=== PATIENT | female | born 1990 | race Caucasian/White ===

== ENCOUNTER 2018-07-10 19:52 | Emergency (ER) | payer OTHER, MEDICAID, SELFPAY ==
[2018-07-10 20:06] VITALS: BP 107/74; PULSE 84; RESP 16; TEMP 36.3; O2SAT 99; BMI 25.0
[2018-07-10 20:25] LABS: Bacteria Urine None Seen; RBC Urine None Seen (0-5/HPF)
[2018-07-10 20:39] LABS: Culture Indicated Urine Specimen Cultured; Mucus Urine 2+ (Negative); WBC Urine 5-10/HPF (0-5/HPF)
[2018-07-10] MEDS: SODIUM CHLORIDE 0.9% 1,000 ML 1000 ML IV (21:15)
[2018-07-10] MEDS: ONDANSETRON 4 MG/2 ML INJ IV (21:15)
--- NOTE | 2018-07-10 22:13 | PC.NURSE ---
Pt feeling much better after ns and zofran
[2018-07-10 22:25] LABS: Add Manual Diff / Slide Review NO; Basophils Percent Auto 0.1 % (0-2); Eosinophils Percent Auto 0.1 % (2-4); Hematocrit 47.7 % (36-46); Hemoglobin 16.2 g/dL (12.0-16.0); Lymphocytes Percent Auto 7.1 % (25-40); Mean Corpuscular HGB Conc 33.9 % (30-36); Mean Corpuscular Hemoglobin 31.3 PG (26-34); Mean Corpuscular Volume 92.2 fL (80-100); Monocytes Percent Auto 4.8 % (3-14); Neutrophils Absolute Auto 14000 /uL (3000-5900); Neutrophils Percent Auto 87.9 % (50-75); Platelet Count 223 X10^3/uL (150-400); Red Blood Cell Count 5.17 X10^6/uL (4.0-5.2); Red Cell Distribution Width 12.9 % (11.6-14.8); White Blood Cell Count 15.9 X10^3/uL (4.5-11.0)
[2018-07-10 22:31] LABS: Alanine Aminotransferase 22 IU/L (9-52); Albumin 5.1 g/dL (3.5-5.0); Albumin Globulin Ratio 1.4 (1.0-2.8); Alkaline Phosphatase 70 U/L (38-126); Aspartate Aminotransferase 28 IU/L (14-36); Bilirubin Total 0.9 mg/dL (0.2-1.3); Blood Urea Nitrogen 14 mg/dL (7-17); Calcium 10.1 mg/dL (8.4-10.2); Carbon Dioxide 23 mmol/L (22-32); Chloride 103 mmol/L (98-107); Estimated Glomerular Filt Rate > 60.0 mL/min (>60); Globulin 3.6 g/dL (1.7-4.1); Glucose 110 mg/dL (70-100); HEMOLYSIS < 15 (0-50); Lipase 116 U/L (23-300); Potassium 4.1 mmol/L (3.4-5.1); Sodium 142 mmol/L (137-145); Total Protein 8.7 g/dL (6.3-8.2)
--- NOTE | 2018-07-10 22:37 | ED_ITS ---
HPI - Nausea/Vomiting/Diarrhea General Chief complaint: Nausea/Vomiting/Diarrhea Stated complaint: PUKING,LETHAGIC Time Seen by Provider: 07/10/18 20:58 Source: patient Mode of arrival: ambulatory Limitations: no limitations History of Present Illness HPI Narrative: Patient is a 27-year-old female who presents with vomiting which started today. Multiple family members have had something similar over the past few days. Vomiting and diarrhea. She started vomiting today and could not. She said she was vomiting almost every 5 min for the least 5 hr. She has had a L of fluid and some Zofran and is now feeling much better. She nothing she is able to keep something down were previously she was not. She has not had diarrhea. MD complaint: nausea, vomiting and abdominal pain Related Data Previous Rx's Medication Instructions Recorded ondansetron 4 mg PO Q6-8H PRN #10 tab 07/10/18 Review of Systems Review of Systems GENERAL: Denies chills, fatigue, malaise, fever, sweats, travel HEENT: Denies sinus pain, ear pain, sore throat, difficulty swallowing, neck pain RESPIRATORY: Denies dyspnea, cough, wheezing, hemoptysis, sputum. CARDIOVASCULAR: Denies chest pain, palpitations, orthopnea, edema GASTROINTESTINAL: See HPI : Denies dysuria, frequency, incontinence, hematuria, urinary retention, flank pain. MUSCULOSKELETAL: Denies weakness, joint pain, or bony pain SKIN: No rash, no erythema, no pruritus NEUROLOGIC: Denies weakness, dizziness, headache, numbness, change in speech, confusion PSYCHIATRIC: No concerning psychosocial issues. 12 point review of systems is negative except for those stated above and HPI [facility] Medical History Healthy adult (Acute) Social History Smoking Status: Current some day smoker Exam Initial Vital Signs Initial Vital Signs: Vital Signs Temperature 97.3 F L 07/10/18 20:06 Pulse Rate 84 07/10/18 20:06 Respiratory Rate 16 07/10/18 20:06 Blood Pressure 107/74 07/10/18 20:06 Pulse Oximetry 99 07/10/18 20:06 GENERAL: Well-appearing, well-nourished and in no acute distress. HEENT: Head atraumatic,EOMI, pupils reactive, face symmetric, moist mucous membranes CARDIOVASCULAR: Regular rate and rhythm without murmurs, rubs or gallops. RESPIRATORY: Breath sounds equal bilaterally, no wheezes rales or rhonchi. ABDOMEN: Soft, nontender. Normoactive bowel sounds all 4 quadrants. No guarding or rebound. : No CVA tenderness EXTREMITIES: Normal range of motion, no clubbing or edema. Neurovascularly intact NEUROLOGICAL: Alert and oriented x4.Normal gait and speech. Cranial nerves II through XII grossly intact. SKIN: Warm, dry, no laceration, no petechiae, no rashes or lesions. Course Orders Ordered: Discontinued Medications Sodium Chloride (Normal Saline 0.9%) 1,000 mls @ 1,000 mls/hr IV BOLUS ONE Stop: 07/10/18 22:14 Last Infusion: 07/10/18 22:13 Dose: 0 mls/hr Admin: 07/10/18 21:15 Dose: 1,000 mls/hr Ondansetron HCl (Zofran) 4 mg IV NOW ONE Stop: 07/10/18 21:16 Last Admin: 07/10/18 21:15 Dose: 4 mg Ondansetron HCl (Zofran Odt Prepack) 1 bottle MISC SEEINSTR ONE Stop: 07/10/18 22:40 Last Admin: 07/10/18 22:46 Dose: 1 bottle Vital Signs - 8 hr 07/10/18 20:06 Temperature 97.3 F L Pulse Rate 84 Respiratory Rate 16 Blood Pressure 107/74 Pulse Oximetry 99 MDM - Nausea/Vomiting/Diarrhea Lab Data Result diagrams: 07/10/18 21:00 07/10/18 21:00 Lab Results 07/10/18 07/10/18 07/10/18 Range/Units 20:05 21:00 21:00 WBC 15.9 H (4.5-11.0) X10^3/uL RBC 5.17 (4.0-5.2) X10^6/uL Hgb 16.2 H (12.0-16.0) g/dL Hct 47.7 H (36-46) % MCV 92.2 (80-100) fL MCH 31.3 (26-34) PG MCHC 33.9 (30-36) % RDW 12.9 (11.6-14.8) % Plt Count 223 (150-400) X10^3/uL Neut % (Auto) 87.9 H (50-75) % Lymph % (Auto) 7.1 L (25-40) % [place] % (Auto) 4.8 (3-14) % Eos % (Auto) 0.1 L (2-4) % Baso % (Auto) 0.1 (0-2) % Neut # (Auto) 68007 H (7473-1258) /uL Sodium 142 (137-145) mmol/L Potassium 4.1 (3.4-5.1) mmol/L Chloride 103 (98-107) mmol/L Carbon Dioxide 23 (22-32) mmol/L BUN 14 (7-17) mg/dL Creatinine 0.70 (0.52-1.04) mg/dL Estimated GFR > 60.0 (>60) mL/min BUN/Creatinine Ratio 20.0 (6-22) Glucose 110 H (70-100) mg/dL Calcium 10.1 (8.4-10.2) mg/dL Total Bilirubin 0.9 (0.2-1.3) mg/dL AST 28 (14-36) IU/L ALT 22 (9-52) IU/L Alkaline Phosphatase 70 (38-126) U/L Total Protein 8.7 H (6.3-8.2) g/dL Albumin 5.1 H (3.5-5.0) g/dL Globulin 3.6 (1.7-4.1) g/dL Albumin/Globulin Ratio 1.4 (1.0-2.8) Lipase 116 (23-300) U/L Urine RBC None seen (0-5/HPF) Urine WBC 5-10/hpf H (0-5/HPF) Urine Bacteria None seen (None) Urine Mucus 2+ H (Negative) Ur Culture Indicated? Specimen cultured Micro UA Comment Not Reportable Preg negative MDM Narrative Medical decision making narrative: The patient is tolerating oral fluids. Multiple family members have had the same symptoms. Likely gastroenteritis. She does not have signs or symptoms of UTI. Her recommend waiting for urine culture. Discharge Plan Departure Patient Disposition: Home, Self-Care Clinical Impression: Gastroenteritis Discharge Date/Time: 07/10/18 22:50 Interventions: ED Discharge Assessment Last Done: 07/10/18 22:49 Instructions: DI for Viral Gastroenteritis -- Adult Activity Restrictions/Additional Instructions: 1) You have been diagnosed with gastroenteritis 2) What to do: Drink frequent but small amounts of fluids. I recommend Gatorade or a Gatorade-like product, as it has small amounts of sugar and salts that improve fluid retention. 3) Take medications as directed -Zofran 4 mg every 6-8 hours if needed for nausea or vomiting 4) Follow up with your primary care provider in 2-3 days 5) Return to ER if you should have any new or worsening symptoms such as, unable to hold down fluids despite use of anti-nausea medications and the small volume oral rehydration strategy. Prescriptions: New ondansetron 4 mg tablet,disintegrating 4 mg PO Q6-8H PRN (Reason: nausea and vomiting) Qty: 10 RF: 0
[2018-07-10] MEDS: ONDANSETRON 4 MG ODT PREPACK 1 BOTTLE MISC (22:46)
[2018-07-10 22:49] VITALS: BP 101/52; PULSE 75; RESP 15
== END 2018-07-10 22:50 | disposition home or self-care (01) ==
PROVIDERS: Emergency Provider Emergency Medicine
DX: K52.9 Noninfective gastroenteritis and colitis, unspecified (principal)
CPT/HCPCS: 36591; 80053; 81003; 81015; 81025; 83690; 85025; 87086; 99283; 99284; J2405

== ENCOUNTER → 2020-12-04 15:44 | Outpatient (CLI) | payer OTHER, SELFPAY ==
--- NOTE | 2020-12-04 15:47 | DI.RAD.S_ITS ---
PROCEDURE: XR CHEST 2V INDICATIONS: SHORTNESS OF BREATH TECHNIQUE: 2 views of the chest were acquired. COMPARISON: None. FINDINGS: Surgical changes and devices: None. Lungs and pleura: Lungs are clear. No pleural effusions or pneumothorax. Mediastinum: Mediastinal contours are normal. Heart size is normal. Bones and chest wall: No suspicious bony abnormalities. Soft tissues appear unremarkable. IMPRESSION: Normal for age, source of current shortness of breath symptoms is not seen. Dictated by: Mark Anaya M.D. on 12/04/2020 at 16:23 Approved by: Mark Anaya M.D. on 12/04/2020 at 16:23
[2020-12-04 16:59] LABS: Add Manual Diff / Slide Review NO; Basophils Absolute Auto 0 /uL (0-100); Basophils Percent Auto 0.5 % (0-2); Eosinophils Absolute Auto 100 /uL (0-450); Eosinophils Percent Auto 0.9 % (2-4); Hematocrit 41.7 % (36-46); Hemoglobin 14.2 g/dL (12.0-16.0); Lymphocytes Absolute Auto 2400 /uL (1100-4500); Lymphocytes Percent Auto 29.1 % (25-40); Mean Corpuscular HGB Conc 34.1 % (30-36); Mean Corpuscular Hemoglobin 31.9 PG (26-34); Mean Corpuscular Volume 93.5 fL (80-100); Monocytes Absolute Auto 600 /uL (0-900); Monocytes Percent Auto 7.6 % (3-14); Neutrophils Absolute Auto 5100 /uL (1500-7000); Neutrophils Percent Auto 61.9 % (50-75); Platelet Count 186 X10^3/uL (150-400); Red Blood Cell Count 4.46 X10^6/uL (4.0-5.2); Red Cell Distribution Width 12.4 % (11.6-14.8); White Blood Cell Count 8.3 X10^3/uL (4.5-11.0)
[2020-12-04 18:08] LABS: Alanine Aminotransferase 22 IU/L (<35); Albumin 3.9 g/dL (3.5-5.0); Albumin Globulin Ratio 1.3 (1.0-2.8); Alkaline Phosphatase 41 U/L (38-126); Aspartate Aminotransferase 24 IU/L (14-36); BUN Creatinine Ratio 17.5 (6-22); Bilirubin Total 0.4 mg/dL (0.2-1.3); Blood Urea Nitrogen 11 mg/dL (7-17); Calcium 9.1 mg/dL (8.4-10.2); Carbon Dioxide 28 mmol/L (22-32); Chloride 104 mmol/L (98-107); Estimated Glomerular Filt Rate > 60.0 mL/min (>60); Free T4, Direct Thyroxine 1.16 ng/dL (0.78-2.19); Globulin 3.1 g/dL (1.7-4.1); Glucose 85 mg/dL (70-100); HEMOLYSIS < 15 (0-50); Potassium 4.1 mmol/L (3.4-5.1); Sodium 133 mmol/L (137-145)
[2020-12-04 18:22] LABS: Thyroid Stimulating Hormone 1.28 uIU/mL (0.47-4.68)
== END ==
PROVIDERS: PCP Registered Nurse; Referring Provider Registered Nurse; Visit Provider Registered Nurse
DX: R06.02 Shortness of breath (principal); R20.0 Anesthesia of skin; R20.2 Paresthesia of skin; R25.2 Cramp and spasm
CPT/HCPCS: 36415; 71046; 80053; 84439; 84443; 85025

== ENCOUNTER → 2020-12-11 15:33 | Outpatient (CLI) | payer OTHER, SELFPAY ==
--- NOTE | 2020-12-11 15:34 | DI.US.S_ITS ---
PROCEDURE: US PERIPH VENOUS LOW EXTREM BI INDICATIONS: leg pain TECHNIQUE: Real-time imaging, as well as color and pulse Doppler interrogation, were performed of the deep veins of both legs from the inguinal ligament to the popliteal fossa. COMPARISON: None. FINDINGS: Right: The common femoral, femoral and popliteal veins are normally compressible, and free of intraluminal thrombus. Color and pulse Doppler demonstrate normal phasic intravascular flow. There is normal augmentation response to distal compression maneuver. Left: The common femoral, femoral and popliteal veins are normally compressible, and free of intraluminal thrombus. Color and pulse Doppler demonstrate normal phasic intravascular flow. There is normal augmentation response to distal compression maneuver. IMPRESSION: No deep venous thrombosis identified within either the left or right lower extremities. Dictated by: Logan Moore [facility] Interpreted: Zeyad Wilkerson MD on 12/11/2020 at 16:25 Approved by: Zeyad Wilkerson M.D. on 12/11/2020 at 17:06
== END ==
PROVIDERS: PCP Registered Nurse; Referring Provider Registered Nurse; Visit Provider Registered Nurse
DX: M79.604 Pain in right leg (principal); M79.605 Pain in left leg
CPT/HCPCS: 93970

== ENCOUNTER → 2021-06-17 12:33 | Outpatient (CLI) | payer SELFPAY | PROVIDERS: PCP Registered Nurse; Visit Provider Physician Assistant | DX: N39.0 Urinary tract infection, site not specified (principal) | CPT/HCPCS: 87077; 87086; 87186 ==

== ENCOUNTER → 2021-09-26 11:29 | Outpatient (CLI) | payer MEDICAID, SELFPAY ==
[2021-09-26 13:33] LABS: HCG Quantitative /Beta subunit 204510 mIU/mL
== END ==
PROVIDERS: PCP Registered Nurse; Referring Provider Family Medicine; Visit Provider Family Medicine
DX: O46.90 Antepartum hemorrhage, unspecified, unspecified trimester (principal); Z71.1 Person with feared health complaint in whom no diagnosis is made
CPT/HCPCS: 36415; 84702

== ENCOUNTER → 2021-09-28 14:50 | Outpatient (CLI) | payer MEDICAID, OTHER, SELFPAY ==
--- NOTE | 2021-09-28 14:53 | DI.US.S_ITS ---
PROCEDURE: US OB <= 14 WEEKS FETUS INDICATIONS: DATING OUTSIDE/PRIOR DATING DATA: Last menstrual period (LMP): 08/01/2021 LMP-based estimated date of delivery (YUAN): 05/08/2022 First dating scan (date and location): 09/28/2021 Estimated date of delivery (YUAN) from first dating scan: 05/05/2022. TECHNIQUE: Real-time scanning was performed of the fetus and maternal pelvic organs, with image documentation. Endovaginal scanning was also performed to better visualize the fetus and maternal ovaries. COMPARISON: None. FINDINGS: Embryo: Single intrauterine gestation is seen with fetus and yolk sac seen. [place]-rump length measures 2.1 cm. Estimated gestational age is 8 weeks, 5 days. Heart rate: heart rate is 173 beats per minute. No evidence of perigestational hemorrhage is seen. Measurement variability in dating: +/- 4 weeks by LMP, +/- 7 days by mean sac diameter (use before 6 weeks gestation if crown-rump length not able to be measured), +/- 5 days by crown-rump length (up to 8 weeks 6 days gestation), +/- 7 days by crown-rump length (up to 13 weeks 6 days gestation). Maternal organs: Ovaries are visualized and show no gross abnormality. Probable small corpus luteal cyst is seen in left ovary. IMPRESSION: 1. Single live intrauterine with fetus and yolk sac seen. heart rate is 173 beats per minute. Estimated gestational age is 8 weeks, 5 days. 2. No evidence of perigestational hemorrhage. Possible small corpus luteal cyst seen in left ovary. Dictated by: Zeyad Wilkerson M.D. on 09/28/2021 at 17:11 Approved by: Zeyad Wilkerson M.D. on 09/28/2021 at 17:12
== END ==
PROVIDERS: PCP Registered Nurse; Referring Provider Family Medicine; Visit Provider Family Medicine
DX: Z34.81 Encounter for supervision of other normal pregnancy, first trimester (principal); Z3A.08 8 weeks gestation of pregnancy
CPT/HCPCS: 76801; 76817

== ENCOUNTER → 2021-10-09 10:08 | Outpatient (CLI) | payer OTHER, MEDICAID, SELFPAY ==
[2021-10-09 11:14] LABS: Add Manual Diff / Slide Review NO; Basophils Absolute Auto 0 /uL (0-100); Basophils Percent Auto 0.2 % (0-2); Eosinophils Absolute Auto 100 /uL (0-450); Hematocrit 39.8 % (36-46); Hemoglobin 13.7 g/dL (12.0-16.0); Lymphocytes Absolute Auto 1600 /uL (1100-4500); Lymphocytes Percent Auto 19.7 % (25-40); Mean Corpuscular HGB Conc 34.4 % (30-36); Mean Corpuscular Hemoglobin 31.1 PG (26-34); Mean Corpuscular Volume 90.4 fL (80-100); Monocytes Absolute Auto 600 /uL (0-900); Monocytes Percent Auto 7.8 % (3-14); Neutrophils Absolute Auto 5700 /uL (1500-7000); Neutrophils Percent Auto 71.3 % (50-75); Platelet Count 176 X10^3/uL (150-400)
[2021-10-09 12:26] LABS: Appearance Urine UA SL CLOUDY; Bilirubin Urine UA NEGATIVE (NEGATIVE); Color Urine UA YELLOW; Glucose Urine UA NEGATIVE (Negative); Ketones Urine UA NEGATIVE (NEGATIVE); Leukocyte Esterase Urine UA NEGATIVE (NEGATIVE); Nitrite Urine UA NEGATIVE (Negative); Occult Blood Urine UA 1+ (Negative); Protein Urine UA NEGATIVE (Negative); Specific Gravity Urine UA 1.015 (1.000-1.035); Urobilinogen Urine UA 0.2 E.U./dL (0.2)
[2021-10-09 12:32] LABS: Bacteria Urine None Seen; RBC Urine 1-5/HPF (0-5/HPF); WBC Urine None Seen (0-5/HPF)
[2021-10-09 18:12] LABS: Hepatitis B Surface Antigen NEGATIVE s/c (NEGATIVE)
[2021-10-09 18:17] LABS: HIV 1 & 2 Ab/Ag 4th Gen Combo NEGATIVE (NEGATIVE); Hep C Virus Ab w/Reflex Quant NEGATIVE s/c (NEGATIVE)
[2021-10-10 06:34] LABS: RPR Screen Non Reactive (Non Reactive)
[2021-10-10 09:42] LABS: Varicella IgG Antibody <135 index (Immune >165)
[2021-10-13 13:42] LABS: Rubella Antibody IgG 14.7 IU/mL (>15)
== END ==
PROVIDERS: PCP Registered Nurse; Referring Provider Family Medicine; Visit Provider Family Medicine
DX: Z34.81 Encounter for supervision of other normal pregnancy, first trimester (principal)
CPT/HCPCS: 36415; 80055; 81003; 81015; 86787; 86803; 86850; 86900; 86901; 87086; 87389

== ENCOUNTER → 2021-12-03 12:59 | Outpatient (CLI) | payer OTHER, MEDICAID, SELFPAY ==
[2021-12-06 20:38] LABS: AFP, Serum 43.7 ng/mL (.); Estriol, Free 1.18 ng/mL (.); Inhibin A, MoM See interpretation. (.); Maternal Ethnicity Caucasian (.); Maternal Weight 160 lbs (.); Number of Fetuses No (.); OSBR Risk 1 IN 10000 (.); Results Report (.); Test Results See interpretation. (.); hCG, MoM See interpretation. (.); hCG, Serum 68592 mIU/mL (.)
[2021-12-10 12:45] LABS: Calc Gestational Age Ultrasound (.)
== END ==
PROVIDERS: PCP Registered Nurse; Referring Provider Family Medicine; Visit Provider Family Medicine
DX: Z34.92 Encounter for supervision of normal pregnancy, unspecified, second trimester (principal); Z3A.16 16 weeks gestation of pregnancy
CPT/HCPCS: 36415; 82105; 82677; 84702; 86336

== ENCOUNTER → 2021-12-18 09:21 | Outpatient (CLI) | payer OTHER, MEDICAID, SELFPAY ==
--- NOTE | 2021-12-18 09:23 | DI.US.S_ITS ---
PROCEDURE: US OB >= 14 WEEKS FETUS INDICATIONS: ANATOMY OUTSIDE/PRIOR DATING DATA: Last menstrual period (LMP): 08/01/2021. LMP-based estimated date of delivery (YUAN): 05/08/2022. First dating scan (date and location): 09/28/2021. Estimated date of delivery (YUAN) from first dating scan: 05/05/2022. TECHNIQUE: Real-time scanning was performed of the fetus, with image documentation and biometric measurements. COMPARISON: [facility], OB <= 14 WEEKS FETUS, 09/28/2021, 15:05. FINDINGS: General: A single living intrauterine gestation is present. Presentation: Variable. Placenta: Placental position is posterior , without previa. Amniotic fluid index: 5.8 cm, normal range is 5-24 cm. heart rate: 143 beats per minute. Maternal cervical canal: 6.5 cm long. Normal lower limit is 2.5 cm. biometrics: Biparietal diameter: 5.0 cm 21 weeks 2 days Head circumference: 18.9 cm 21 weeks 1 day Abdominal circumference: 15.5 cm 20 weeks 5 days Femur length: 3.4 cm 20 weeks days Clinically estimated gestational age: 20 weeks 2 days Composite gestational age from present scan: 21 weeks 0 day Estimated weight and percentile: 377 g 73rd percentile Anatomic survey: Neuro: Ventricles are non-dilated at less than 10 mm. Cisterna magna is normal at 3-11 mm. Cerebellum is normal in size and morphology. Nuchal skin fold: Normal at less than 6 mm between 14-21 weeks gestational age. Face: Nose and lips, facial profile are normal. Spine: No evidence for spina bifida. Heart: 4-chambered heart is present, with normal ventricular outflow tracts. Diaphragm: Diaphragm is intact. Stomach: Left-sided stomach is present. Kidneys: No hydronephrosis. Normal is less than 5 mm in 2nd trimester, less than 7 mm in 3rd trimester. Cord: 3-vessel cord has orthotopic insertion. Bladder: Normal in size. Extremities: All 4 extremities identified. IMPRESSION: 1. Single live intrauterine with ultrasound gestational age 2 day of 21 weeks 0 days compared to 20 weeks 2 days from initial ultrasound. 2. Anatomy is within normal limits. We strive to produce accurate, complete, and clear reports of imaging services. To assist us in improving patient care, this report was composed using standard report templates and voice recognition software. Therefore, it may contain abnormal punctuation, insertions and/or omissions. Occasional wrong-word or sound-alike substitutions may occur. Though we review the report and make efforts to correct it, we do recommend that the report be read carefully in proper context to recognize any text inaccuracies. Dictated by: Onelia Toledo M.D. on 12/18/2021 at 17:45 Approved by: Onelia Toledo M.D. on 12/18/2021 at 17:47
== END ==
PROVIDERS: PCP Registered Nurse; Referring Provider Family Medicine; Visit Provider Family Medicine
DX: Z36.89 Encounter for other specified antenatal screening (principal); Z3A.21 21 weeks gestation of pregnancy
CPT/HCPCS: 76811

== ENCOUNTER → 2022-01-01 16:11 | Outpatient (CLI) | payer OTHER, MEDICAID, SELFPAY | PROVIDERS: PCP Registered Nurse; Referring Provider Family Medicine; Visit Provider Family Medicine | DX: O28.0 Abnormal hematological finding on antenatal screening of mother (principal); O28.5 Abnormal chromosomal and genetic finding on antenatal screening of mother | CPT/HCPCS: 36415; 81420 ==

== ENCOUNTER → 2022-03-11 08:19 | Outpatient (CLI) | payer OTHER, MEDICAID, SELFPAY ==
[2022-03-11 10:57] LABS: Hemoglobin 11.1 g/dL (12.0-16.0)
[2022-03-11 12:01] LABS: GTT (PREG) 1 Hour PP 50gm Dose 122 mg/dL (76-139)
== END ==
PROVIDERS: PCP Registered Nurse; Referring Provider Family Medicine; Visit Provider Family Medicine
DX: Z34.92 Encounter for supervision of normal pregnancy, unspecified, second trimester (principal); Z3A.26 26 weeks gestation of pregnancy
CPT/HCPCS: 36415; 82950; 85014; 85018

== ENCOUNTER → 2022-04-09 15:56 | Outpatient (CLI) | payer OTHER, MEDICAID, SELFPAY ==
[2022-04-10 13:14] LABS: Strep Grp B PCR NEG for Grp B Strep
== END ==
PROVIDERS: PCP Registered Nurse; Visit Provider Family Medicine
DX: Z3A.36 36 weeks gestation of pregnancy (principal)
CPT/HCPCS: 87653

== ENCOUNTER 2022-05-06 06:45 | Outpatient (CLI) | payer OTHER, MEDICAID, SELFPAY ==
--- NOTE | 2022-05-06 08:27 | PM.OBTRLD ---
Visit Information Visit Information Date of evaluation: 05/06/22 Primary OB Provider: Antonia Carolina On-call OB Provider: Rae Elliott Reason for Evaluation: Yes rupture of membranes Comments/Additional reasons for admission: This patient is a 31yo P1 @39 weeks gestation presenting after an episode of leakage this AM. No further leakage, rare ctx, good movement, no bleeding. Vital Signs Vital Signs: S [facility] Medical History Contraception management Healthy adult Leg cramps Leg pain, bilateral SOB (shortness of breath) Spontaneous vaginal delivery Urinary tract infection Surgical History [place] teeth extracted Family History Grandmother Cervical cancer History of stillbirth Grandfather Parkinson's disease Mother delivery, delivered Father No problems noted. Grandmother No problems noted. Sister Chronic eczema Social History marital status: unmarried,living together number of children: 1 household members: spouse and children lives independently: Yes caregiver/support person: No housing: apartment pets and animals: No education level: college occupational status: employed current occupational exposures/hazards: No special rosy needs: No seatbelt use: always do you feel safe at home: Yes Smoking Status: Former smoker Tobacco: How many years used: 3 quit status: has quit before second hand exposure: No alcohol intake: former substance use type: marijuana during the past year weight has: remained stable well-balanced diet: daily or most days caffeine: Yes (Has cut down; maybe 6 oz coffee.) Type(s) of exercise: walking and normal ROM and activity frequency: does not exercise Review of Systems Constitutional Constitutional: Reports system reviewed and no additional complaints, except as documented Gastrointestinal Gastrointestinal: Reports system reviewed and no additional complaints, except as documented Genitourinary Genitourinary: Reports as per HPI Evaluation Evaluation Baseline heart rate: 140 Variability: Average (6-10) monitor accelerations: Present Monitor Decelerations: Absent Contraction Frequency (minutes): 10 Status: Category l Non-invasive Membranes Rupture Test: negative Diagnosis, Plan/Disposition Plan/Disposition Plan: Home with labor precautions. OB Disposition: home
== END 2022-05-06 07:50 | disposition home or self-care (01) ==
LOC: LABOR 08:15 → OB 05-08 10:34
PROVIDERS: PCP Registered Nurse; Referring Provider Obstetrics & Gynecology; Visit Provider Obstetrics & Gynecology
DX: Z03.71 Encounter for suspected problem with amniotic cavity and membrane ruled out (principal); Z3A.39 39 weeks gestation of pregnancy
CPT/HCPCS: 59025; 84112; G0378; G0379

== ENCOUNTER 2022-05-08 01:57 | Observation (INO) | payer OTHER, MEDICAID, SELFPAY ==
[2022-05-08] MEDS: hydrOXYzine 50 MG/ML INJ IM (03:36)
[2022-05-08] MEDS: MORPHINE 10 MG/ML INJ 5 MG IM (03:38)
== END 2022-05-08 03:57 | disposition home or self-care (01) ==
PROVIDERS: Admitting Provider Family Medicine; PCP Registered Nurse; Referring Provider Family Medicine; Visit Provider Family Medicine
DX: O47.1 False labor at or after 37 completed weeks of gestation (principal); Z3A.39 39 weeks gestation of pregnancy
CPT/HCPCS: 59025; 96372; G0378; G0379; J2270; J3410

== ENCOUNTER 2022-05-08 05:35 | Inpatient (IN) | payer OTHER, MEDICAID, SELFPAY ==
[2022-05-08 06:27] VITALS: BP 100/58
[2022-05-08 06:30] LABS: COVID19 -Nasal RAPID Negative (Negative)
[2022-05-08 06:43] LABS: Add Manual Diff / Slide Review NO; Basophils Absolute Auto 0 /uL (0-100); Basophils Percent Auto 0.4 % (0-2); Eosinophils Absolute Auto 0 /uL (0-450); Eosinophils Percent Auto 0.3 % (2-4); Hematocrit 36.8 % (36-46); Hemoglobin 12.6 g/dL (12.0-16.0); Lymphocytes Absolute Auto 1400 /uL (1100-4500); Lymphocytes Percent Auto 11.1 % (25-40); Mean Corpuscular HGB Conc 34.4 % (30-36); Mean Corpuscular Hemoglobin 30.8 PG (26-34); Mean Corpuscular Volume 89.7 fL (80-100); Monocytes Absolute Auto 1000 /uL (0-900); Monocytes Percent Auto 7.7 % (3-14); Neutrophils Absolute Auto 10400 /uL (1500-7000); Neutrophils Percent Auto 80.5 % (50-75); Platelet Count 131 X10^3/uL (150-400); Red Cell Distribution Width 13.1 % (11.6-14.8); White Blood Cell Count 12.9 X10^3/uL (4.5-11.0)
[2022-05-08] MEDS: LACTATED RINGERS 1,000 ML 100 ML IV ×2 (07:11→09:28)
--- NOTE | 2022-05-08 08:32 | PM.OBHP.IH.1 ---
OB HPI Date/Time Date of admission: 05/08/22 Date Patient Seen: 05/08/22 Time Patient Seen: 06:50 History of Present Condition Chief complaint: OBS YUAN Calculator Estimated Delivery Date Method Current WG Current Estimate 05/08/22 LMP (Certain) 40w 0d Other Estimates 05/05/22 Ultrasound #1 40w 3d Estimated Gestational Age (weeks): 40w0d : 3 Para: 1 Narrative: 31yo at 40w0d here for painful contractions. Pt reports contractions starting last night, increasing in frequency and intensity since then. She denies any significant vaginal bleeding or LOF. She is feeling her baby move regularly. Her was complicated by positive quad screen for Down syndrome, with negative cfDNA and reassuring visit with MFM as well. care: good care, initiated at week # (9) and pounds weight gain (37) Dating criteria OB: LMP confirmed by 1st trimester US Ultrasounds: normal 1st trimester US and normal mid trimester US Obstetrical complications: none Medical complications OB: none Preadmission Labs Last OB Lab Results: Blood Type A Positive 05/08/22 06:22 05/08/22 Antibody Screen Negative 05/08/22 06:22 05/08/22 Hematocrit 36.8 % (36-46) 05/08/22 06:22 05/08/22 Hemoglobin 12.6 g/dL (12.0-16.0) 05/08/22 06:22 05/08/22 Hepatitis B Surface Antigen Negative s/c (NEGATIVE) 10/09/21 10:15 10/09/21 Hepatitis C Antibody Negative s/c (NEGATIVE) 10/09/21 10:15 10/09/21 Rubella Antibody 14.7 IU/mL (>15) L 10/09/21 10:15 10/09/21 Varicella-Zoster IgG Antibody <135 index (Immune >165) L 10/09/21 10:15 10/09/21 Glucose 1 Hour 122 mg/dL (76-139) 03/11/22 09:55 03/11/22 Group B Streptococcus (PCR) Neg for grp b strep 04/09/22 15:56 04/09/22 -: Urine: negative Genetic Screens: Quad screen: Abnormal (high risk Down syndrome) and Cell-free DNA: Normal External Labs -: Urine: negative Prior (ies) Past Pregnancies Del. Date GA/Weeks Labor Lgth Wt Sex Route Outcome Anesthesia Place Delv Breastfeed Preg Comp Name 12/01/14 6 elective 08/31/17 39 3 7 lb 8 oz Female vaginal live - full term epidural Shweta Franz 18 mos. none Ailyn Delivery Date: 08/31/17 Last Updated by: Michelle Cage R.N. Some FHR decels in labor but resolved. Evaluation Evaluation Baseline heart rate: 150 Variability: Moderate (11-25) monitor accelerations: Absent Monitor Decelerations: Variable Contraction Frequency (minutes): 2 Uterine Contraction Intensity: Strong/Firm Status: Category ll Dilation (cm): 8 Effacement (%): 100 station: -1 [facility] Medical History Contraception management Healthy adult Leg cramps Leg pain, bilateral SOB (shortness of breath) Spontaneous vaginal delivery Urinary tract infection Surgical History [place] teeth extracted Family History Grandmother Cervical cancer History of stillbirth Grandfather Parkinson's disease Mother delivery, delivered Father No problems noted. Grandmother No problems noted. Sister Chronic eczema Social History marital status: unmarried,living together number of children: 1 household members: spouse and children lives independently: Yes caregiver/support person: No housing: apartment pets and animals: No education level: college occupational status: employed current occupational exposures/hazards: No special rosy needs: No seatbelt use: always do you feel safe at home: Yes Smoking Status: Former smoker Tobacco: How many years used: 3 quit status: has quit before second hand exposure: No alcohol intake: former substance use type: marijuana during the past year weight has: remained stable well-balanced diet: daily or most days caffeine: Yes (Has cut down; maybe 6 oz coffee.) Type(s) of exercise: walking and normal ROM and activity frequency: does not exercise Meds Home Medications and Allergies Home Medications Medication Instructions Recorded Confirmed Type prenat.vits,baudilio,cer-uibl-qrpaw 1 tab PO DAILY 10/08/21 05/08/22 History Allergies Allergy/AdvReac Type Severity Reaction Status Date / Time No Known Drug Allergies Allergy Verified 04/30/22 15:59 OB Exam Narrative Exam Narrative: Gen: NAD, sitting comfortably in bed, appears well CV: RRR, no murmurs Resp: clear to auscultation bilaterally Abd: soft, nontender, gravid Ext: no edema Objective Labs Result Diagrams: 05/08/22 06:22 Labs: Laboratory Results - last 24 hr 05/08/22 05/08/22 05/08/22 06:05 06:22 06:22 WBC 12.9 H RBC 4.10 Hgb 12.6 Hct 36.8 MCV 89.7 MCH 30.8 MCHC 34.4 RDW 13.1 Plt Count 131 L Neut % (Auto) 80.5 H Lymph % (Auto) 11.1 L [place] % (Auto) 7.7 Eos % (Auto) 0.3 L Baso % (Auto) 0.4 Neut # (Auto) 43131 H Lymph # (Auto) 1400 [place] # (Auto) 1000 H Eos # (Auto) 0 Baso # (Auto) 0 SARS-CoV-2 (PCR) Negative Blood Type A Positive Antibody Screen Negative Assessment and Plan Assessment and Plan Assessment and Plan narrative: Pt is a 31yo at 40w0d here in active labor. GBS negative, Rh positive. - Expectant management, anticipate - FHT Category II with only rare variable decels, otherwise reassuring - GBS negative, no prophylaxis needed - Epidural in place for pain control
--- NOTE | 2022-05-08 10:13 | PM.OBPNLAB ---
Date/Time Date Patient Seen: 05/08/22 Time Patient Seen: 09:45 Pain Control Pain control: tolerating well and epidural Pelvic Exam Dilation (cm): 9 Effacement (%): 100 station: 0 Amniotic membrane status: Ruptured Comments: After informed consent, AROM performed with production of clear fluid. Contractions Monitor mode: External Contraction frequency (min): 2 Contraction pattern: Regular Contraction intensity: Strong/Firm Status status: Category ll Heart Rate Baseline: 140 Monitor Accelerations: Absent Monitor Decelerations: Early, Late and Variable Monitor Variability: Moderate Assessment and Plan Comments: Pt is a 31yo at 40w0d here in active labor.? GBS negative, Rh positive. AROM performed with production of clear fluid. - Expectant management, anticipate - FHT Category II with variable, late, and early decels. Good variability present still. Will continue with position changes, oxygen, IVF bolus. - GBS negative, no prophylaxis needed - Epidural in place for pain control, functioning well
[2022-05-08] MEDS: OXYTOCIN PREMIX 30 UNIT/500 ML PLAST..BAG 200 UNIT IV (10:59)
--- NOTE | 2022-05-08 11:19 | PM.OBPRVD ---
Labor & Delivery Delivery date: 05/08/22 Intrapartal Events: None Cervical ripening method: none Induction method: none Delivery augmentation: rupture of membranes Delivery monitor: external FHT and external uterine Route of delivery: Episiotomy description: None L&D Laceration Description: Perineal - 2nd Degree Delivery repair: chromic Quantitative Blood Loss: 500 Anesthesia Type: Epidural Complications: hemorrhage Narrative: PROCEDURE: at 40w0d presented in active labor and was admitted to Labor and Delivery. The patient progressed through the 1st stage over 5.5 hours. Pain was controlled with an epidural. The patient progressed through the 2nd stage over 19 minutes and delivered a viable male infant with APGARs 8/9 at 10:52 via without complications. The cord was cut and clamped when it stopped pulsating. The perineum and vagina were inspected with 2nd degree perineal laceration repaired with 2-O Vicryl. The pt initially had heavy bleeding controlled with bimanual massage and normal pitocin. Her bleeding was appropriate prior to repair completion. PREPROCEDURE DIAGNOSIS: Intrauterine at 40w0d GBS negative RH positive POSTPROCEDURE DIAGNOSIS: Intrauterine at 40w0d, delivered Same as preprocedure Baby 1: Infant gender: Male Presentation: vertex Position: Left Occiput Anterior Placenta delivery description: Spontaneous Cord Vessel Description: 3 Vessels score (1 min): 8 score (5 min): 9 weight: 9 lb 10.853 oz Plan for aftercare: Routine care
[2022-05-08 11:23] VITALS: BP 100/57; PULSE 78; RESP 16; TEMP 36.4
[2022-05-08] MEDS: IBUPROFEN 600 MG TABLET PO ×2 (12:29→18:29)
[2022-05-08] MEDS: ACETAMINOPHEN 325 MG TABLET 650 MG PO (23:52)
[2022-05-09 06:06] LABS: Hematocrit 31.8 % (36-46); Hemoglobin 10.7 g/dL (12.0-16.0)
[2022-05-09] MEDS: IBUPROFEN 600 MG TABLET PO (08:54)
[2022-05-09] MEDS: PRENATAL VIT,CALC/IRON/FOLIC 1 TABLET 1 TAB PO (08:54)
[2022-05-09] MEDS: DOCUSATE 100 MG CAPSULE PO (08:54)
--- NOTE | 2022-05-09 11:24 | PM.OBDS.1 ---
Discharge Providers Provider Date of admission: 05/08/22 05:35 Discharge Date: 05/09/22 Primary care physician: LIU Sheth Consults: 05/09/22 11:17 Consult to Transportation Planning Technician Routine Comment: Discharge provider: Giana Rush MD Summary Hospital Course Date Patient Seen: 05/09/22 Time Patient Seen: 11:24 Diagnoses: 40w0d gestation GBS negative Rh positive hemorrhage Hospital Course: The pt presented in active labor. She received an epidural for pain control. AROM was performed with production of clear fluid. She progressed to complete and had an of a viable baby boy. After delivery of the placenta, bleeding was brisk but controlled with bimanual massage and usual pitocin. A 2nd degree perineal laceration was then repaired. , there were no complications. At the time of discharge she was voiding, ambulating, and passing flatus without difficulty. Her lochia was decreasing appropriately. She was with good latch. Her pain was well controlled. She will f/u in clinic in 6 weeks for check. She would like an IUD for contraception, uncertain which type. She had one in the past that caused acne, but she is uncertain which one it was. She will attempt to find out. Peripartum Data Delivery Method: Natural Vaginal Laceration Description: Perineal - 2nd Degree Episiotomy description: None Procedures: Spontaneous vaginal delivery complications: none [place] 1: Gender: Male Disposition of : home Discharge Diagnosis (1) Spontaneous vaginal delivery: Status: Acute Time Spent with Patient Time attestation: Total time spent providing and/or coordinating discharge services: Objective Labs Result Diagrams: 05/09/22 05:47 Labs: Laboratory Results - last 24 hr 05/09/22 05:47 Hgb 10.7 L Hct 31.8 L Exam Narrative Exam Narrative: Gen: NAD, sitting comfortably in bed, appears well CV: RRR, no murmurs Resp: clear to auscultation bilaterally Abd: soft, appropriately tender, fundus firm and below the umbilicus, nondistended Ext: no edema Discharge Plan Discharge Plan Patient Disposition: Home Discharge orders & Medications Prescriptions: New acetaminophen 325 mg Tablet 650 mg PO Q6HR PRN (Reason: Pain, Mild (1-3)) Qty: 30 0RF docusate sodium 100 mg Capsule 100 mg PO DAILY Qty: 30 0RF ibuprofen 600 mg Tablet 600 mg PO Q6HR PRN (Reason: Pain, Mild (1-3)) Qty: 30 0RF Continued prenat.vits,baudilio,[id number] Tablet 1 tab PO DAILY Follow up/Referrals: Joaquin Montejo ARNP [Primary Care Provider] - Antonia Carolina DO [Physician] - 6 Weeks Diet/Activity/Treatments Diet: Diet as Tolerated and Regular Skin/Wound/Dressing Care Report to your healthcare provider any signs of infection, such as:: chills, fever, increased pain and unusual drainage Visit Report/Discharge Packet Instructions: DI for Labor and Delivery, Vaginal Visit Report Forms: Patient Portal/API, Stroke Signs & Symptoms Discharge Data Primary Care Provider: Joaquin Montejo
[2022-05-09] MEDS: MEASLES,MUMPS,RUBELLA VACC/PF 0.5 ML VIAL SUBCUT (12:03)
== END 2022-05-09 12:50 | disposition home or self-care (01) | DRG 560 ==
PROVIDERS: Admitting Provider Family Medicine; PCP Registered Nurse; Referring Provider Family Medicine; Visit Provider Family Medicine
DX: O48.0 Post-term pregnancy (principal); Z3A.40 40 weeks gestation of pregnancy; Z37.0 Single live birth; O28.5 Abnormal chromosomal and genetic finding on antenatal screening of mother; O76 Abnormality in fetal heart rate and rhythm complicating labor and delivery; O70.1 Second degree perineal laceration during delivery; Z20.822 Contact with and (suspected) exposure to COVID-19; O47.1 False labor at or after 37 completed weeks of gestation; Z3A.39 39 weeks gestation of pregnancy
CPT/HCPCS: 01967; 36415; 59025; 59050; 59409; 85014; 85018; 85025; 86850; 86900; 86901; 87635; 96372; C9803; G0378; G0379; J2270; J2590; J3410

== ENCOUNTER → 2024-02-12 16:38 | Outpatient (CLI) | payer OTHER, MEDICAID, SELFPAY | PROVIDERS: PCP Nurse Practitioner Family; Visit Provider Nurse Practitioner Family | DX: R32 Unspecified urinary incontinence (principal); R31.9 Hematuria, unspecified | CPT/HCPCS: 81002; 81025; 87086; 87210 ==

== ENCOUNTER → 2024-06-09 15:44 | Outpatient (CLI) | payer OTHER, SELFPAY ==
[2024-06-10 02:42] LABS: Urine Chlamydia NOT DETECTED; Urine N gonorrhoeae NOT DETECTED
== END ==
PROVIDERS: PCP Nurse Practitioner Family; Visit Provider Nurse Practitioner Family
DX: N89.8 Other specified noninflammatory disorders of vagina (principal)
CPT/HCPCS: 87210; 87491; 87591